=== PATIENT | male | born 1965 | race American Indian/Alaskan Native ===

== ENCOUNTER 2018-08-30 20:13 | Emergency (ER) | payer OTHER ==
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
[2018-08-31] MEDS ORDERED: FLEXERIL PO ONE (00:32)
[2018-08-31] MEDS ORDERED: IBUPROFEN PO ONE (00:32)
[2018-08-31] MEDS ORDERED: TYLENOL PO ONE (00:32)
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
[2018-08-31 01:42] VITALS: BP 137/65
== END 2018-08-31 01:15 | disposition home or self-care (01) ==
LOC: ED 20:13
DX: M62.830 Muscle spasm of back (principal); M62.838 Other muscle spasm; F17.200 Nicotine dependence, unspecified, uncomplicated; Z79.899 Other long term (current) drug therapy; V49.49XA Driver injured in collision with other motor vehicles in traffic accident, initial encounter; Y93.89 Activity, other specified; Y92.89 Other specified places as the place of occurrence of the external cause; Y99.8 Other external cause status
CPT/HCPCS: 72040; 72100

== ENCOUNTER 2018-11-01 14:17 | Emergency (ER) | payer BC, OTHER ==
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
--- NOTE | 2018-11-01 15:35 | XRay Report ---
Right foot, 2 views INDICATION: lateral pain and swelling. COMPARISON: None. IMPRESSION: No acute osseous or soft tissue abnormality. No significant DJD. Signer Name: Damian Staton Jr, MD Signed: 11/01/2018 3:31 PM Workstation Name: [id number]
--- NOTE | 2018-11-01 15:37 | XRay Report ---
Right knee, 3 views INDICATION: anterior knee pain. COMPARISON: None. IMPRESSION: A transverse fracture is identified to the mid patella. Displacement measures up to 3 mm . The distal femur, proximal tibia and proximal fibula are intact. The joint space is unremarkable. A large joint effusion extends to the suprapatellar bursa which probably represents a hemarthrosis. Signer Name: Damian Staton Jr, MD Signed: 11/01/2018 3:32 PM Workstation Name: [id number]
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
[2018-11-01] MEDS ORDERED: PERCOCET 5/325 PO ONE (17:31)
[2018-11-01 20:08] VITALS: BP 164/84
== END 2018-11-01 20:00 | disposition home or self-care (01) ==
LOC: ED 14:17
DX: S82.034A Nondisplaced transverse fracture of right patella, initial encounter for closed fracture (principal); M25.061 Hemarthrosis, right knee; M79.671 Pain in right foot; W19.XXXA Unspecified fall, initial encounter; Y93.41 Activity, dancing; Y92.89 Other specified places as the place of occurrence of the external cause; Y99.8 Other external cause status